=== PATIENT | female | born 1975 | race Two or more races ===

== ENCOUNTER 2020-09-24 09:40 | Emergency (ER) | payer SELFPAY | END 2020-09-24 12:23 | disposition home or self-care (01) | LOC: ER1 09:40 | DX: J02.9 Acute pharyngitis, unspecified (principal) | CPT/HCPCS: 87081; 87880; 99283 ==

== ENCOUNTER 2020-10-10 11:59 | Emergency (ER) | payer OTHER ==
[2020-10-10 13:00] LABS: HEMOGLOBIN 13.5 gm/dl (12.3-15.3); RED BLOOD COUNT 4.59 M/UL (4.00-5.10); WHITE BLOOD COUNT 10.6 K/UL (4.5-11.0)
[2020-10-10 13:16] LABS: BUN/CREATININE RATIO 12 (0-10)
[2020-10-10] MEDS ORDERED: CHILDREN'S ASPI81 MG PO (14:38)
[2020-10-10] MEDS ORDERED: AZITHROMYCIN250 MG PO (15:13)
== END 2020-10-10 15:28 | disposition home or self-care (01) ==
LOC: ER1 11:59
PROVIDERS: Physician Assistant
DX: U07.1 COVID-19 (principal); J12.82 Pneumonia due to coronavirus disease 2019; R94.5 Abnormal results of liver function studies
CPT/HCPCS: 71045; 80053; 81001; 83690; 85025; 99284; U0002